=== PATIENT | male | born 1970 | race Caucasian/White ===

== ENCOUNTER 2019-11-10 05:59 | Emergency (ER) | payer SELFPAY ==
[~2019-11-10] VITALS: Ht 170.2 cm; Wt 101.0 kg
--- NOTE | 2019-11-10 06:27 | NUR ---
PT C/O COUGH, SOB, SORE THROAT X2 WEEKS. PT DENIES CP. PT DX WITH COPD 5 MOS AGO. PT USES ALBUTEROL AND SPIRIVA AT HOME WITH NO RELEIF. PT CONNETED TO MONITORING, CALL LIGHT WITHIN REACH, ALL SAFETY MEASURES IN PLACE.
--- NOTE | 2019-11-10 06:34 | NUR ---
PT REFUSED IV PLACEMENT AT THIS TIME
--- NOTE | 2019-11-10 06:43 | NUR ---
TP RN: RT AWARE OF BREATHING TX ORDER.
[2019-11-10] MEDS ORDERED: ALBUTEROL/IPRATROPIUM 2.5MG/0.5MG, 3 ML ONE (06:46)
--- NOTE | 2019-11-10 06:49 | NUR ---
REPORT TO KATHERINE CARDONA
--- NOTE | 2019-11-10 06:54 | NUR ---
REPORT RECEIVED FROM LENNIE MURPHY.
[2019-11-10] MEDS ORDERED: ALBUTEROL/IPRATROPIUM 2.5MG/0.5MG, 3 ML NPPB ONE (07:00)
[2019-11-10] MEDS ORDERED: PLEASE ENTER ALLERGIES MC SCH (07:00)
--- NOTE | 2019-11-10 07:02 | NUR ---
PT MEDICATED PER EMAR. PT TOLERATED WELL.
[2019-11-10 07:14] VITALS: BP 121/68
--- NOTE | 2019-11-10 07:37 | NUR ---
Patient given verbal discharge instructions and they have confirmed that they understand the instructions. pt left without dc papers.
== END 2019-11-10 07:38 | disposition home or self-care (01) ==
LOC: ED 07:10
DX: J44.1 Chronic obstructive pulmonary disease with (acute) exacerbation (principal); F17.200 Nicotine dependence, unspecified, uncomplicated
CPT/HCPCS: 71045; 93005; 94640; 99283; J7512; J7620